=== PATIENT | female | born 1965 | race Caucasian/White ===

== ENCOUNTER → 2017-12-30 | Outpatient (CLI) | payer OTHER ==
[~2017-12-30] MED LIST: CIPR500T87 PO; DIPH25CA61 PO; HYDR25TA11 PO; METR500T PO
== END | disposition home or self-care (01) ==
LOC: CFH 16:04
PROVIDERS: ATTEND Obstetrics & Gynecology Gynecology
DX: Z12.31 Encounter for screening mammogram for malignant neoplasm of breast (principal)
CPT/HCPCS: 77063; 77067

== ENCOUNTER → 2018-11-30 | Outpatient (CLI) | payer OTHER | END | disposition home or self-care (01) | LOC: CFH 11:24 | PROVIDERS: ATTEND Family Medicine | DX: M85.88 Other specified disorders of bone density and structure, other site (principal); N95.9 Unspecified menopausal and perimenopausal disorder | CPT/HCPCS: 77080 ==

== ENCOUNTER → 2018-12-08 | Outpatient (CLI) | payer OTHER | END | disposition home or self-care (01) | LOC: CFH 16:20 | PROVIDERS: ATTEND Family Medicine | DX: M19.042 Primary osteoarthritis, left hand (principal); M19.041 Primary osteoarthritis, right hand ==

== ENCOUNTER → 2019-01-04 | Outpatient (CLI) | payer OTHER | END | disposition home or self-care (01) | LOC: CFH 12:24 | PROVIDERS: ATTEND Family Medicine | DX: Z12.31 Encounter for screening mammogram for malignant neoplasm of breast (principal) | CPT/HCPCS: 77063; 77067 ==

== ENCOUNTER → 2019-10-18 | Outpatient (CLI) | payer OTHER ==
[~2019-10-18] MED LIST changes: +HYDR-826 PO; -HYDR25TA11 PO
== END | disposition home or self-care (01) ==
LOC: CFH 16:09
PROVIDERS: ATTEND Family Medicine
DX: K59.09 Other constipation (principal)
CPT/HCPCS: 74018

== ENCOUNTER → 2019-12-24 | Outpatient (CLI) | payer OTHER ==
[~2019-12-24] MED LIST changes: +OMNIPAQUE 350 MG/ML, 100ML BOTTLE ONE
== END | disposition home or self-care (01) ==
LOC: CFH 07:35
PROVIDERS: ATTEND Internal Medicine Gastroenterology
DX: K76.0 Fatty (change of) liver, not elsewhere classified (principal); K44.9 Diaphragmatic hernia without obstruction or gangrene; K57.30 Diverticulosis of large intestine without perforation or abscess without bleeding; N28.1 Cyst of kidney, acquired; I70.0 Atherosclerosis of aorta; M85.88 Other specified disorders of bone density and structure, other site; M47.819 Spondylosis without myelopathy or radiculopathy, site unspecified; M79.89 Other specified soft tissue disorders
CPT/HCPCS: 73620; 74018; 74177; 77077; Q9967

== ENCOUNTER → 2020-03-03 | Outpatient (CLI) | payer OTHER ==
[~2020-03-03] MED LIST changes: -OMNIPAQUE 350 MG/ML, 100ML BOTTLE ONE
== END | disposition home or self-care (01) ==
LOC: CFH 14:05
PROVIDERS: ATTEND Family Medicine
DX: Z12.31 Encounter for screening mammogram for malignant neoplasm of breast (principal)
CPT/HCPCS: 76641; 77063; 77067

== ENCOUNTER → 2020-07-26 | Outpatient (CLI) | payer OTHER | END | disposition home or self-care (01) | LOC: CFH 10:56 | PROVIDERS: ATTEND Anesthesiology | DX: M47.817 Spondylosis without myelopathy or radiculopathy, lumbosacral region (principal); M51.25 Other intervertebral disc displacement, thoracolumbar region | CPT/HCPCS: 72120; 72148 ==

== ENCOUNTER 2021-01-11 11:08 | Outpatient (CLI) | payer OTHER | END 2021-01-11 23:59 | disposition home or self-care (01) | LOC: CFH 11:08 | PROVIDERS: ATTEND Family Medicine | DX: N95.9 Unspecified menopausal and perimenopausal disorder (principal) | CPT/HCPCS: 77080 ==

== ENCOUNTER → 2021-03-21 | Outpatient (CLI) | payer OTHER | END | disposition home or self-care (01) | LOC: CFH 11:51 | PROVIDERS: ATTEND Plastic Surgery | DX: N63.24 Unspecified lump in the left breast, lower inner quadrant (principal); N64.89 Other specified disorders of breast; N60.02 Solitary cyst of left breast | CPT/HCPCS: 76642; 77062; 77066; G0279 ==

== ENCOUNTER 2021-06-19 12:28 | Outpatient (CLI) | payer OTHER ==
[2021-06-19] MEDS ORDERED: LIDOCAINE 1%-EPI 1:100K, 20ML ONE (16:26)
[2021-06-19] MEDS ORDERED: SODIUM BICARBONATE 4.2%, 5ML ONE (16:26)
[2021-06-19] MEDS ORDERED: LIDOCAINE 1%, 20ML ONE (16:26)
== END 2021-06-19 23:59 | disposition home or self-care (01) ==
LOC: CFH 12:28
PROVIDERS: ATTEND Family Medicine
DX: N63.23 Unspecified lump in the left breast, lower outer quadrant (principal); N61.22 Granulomatous mastitis, left breast; Z88.1 Allergy status to other antibiotic agents; Z88.8 Allergy status to other drugs, medicaments and biological substances; Z91.09 Other allergy status, other than to drugs and biological substances; Z79.899 Other long term (current) drug therapy; Z72.89 Other problems related to lifestyle; Z87.891 Personal history of nicotine dependence
CPT/HCPCS: 19083; 77065; 88305; 88312; 88341; 88342; J3490

== ENCOUNTER 2021-06-25 19:54 | Emergency (ER) | payer OTHER ==
[~2021-06-25] VITALS: Ht 152.4 cm; Wt 63.6 kg
[2021-06-25 20:38] LABS: BASOPHILS % (AUTO) 0 % (0-1); EOSINOPHILS % (AUTO) 4 % (1-7); LYMPHOCYTES % (AUTO) 30 % (22-44); MEAN CORPUSCULAR HEMOGLOBIN 30.5 pg (27.0-34.8); MEAN CORPUSCULAR HGB CONC 33.6 g/dL (32.4-35.8); MEAN PLATELET VOLUME 8.3 fL (7.4-10.4); MONOCYTES % (AUTO) 7 % (2-9); NEUTROPHILS % (AUTO) 59 % (42-75); PLATELET COUNT 316 x10^3/uL (130-400); RED BLOOD COUNT 4.56 x10^6/uL (3.82-5.3); RED CELL DISTRIBUTION WIDTH 13.6 % (9.6-15.2)
[2021-06-25 20:48] LABS: ALANINE AMINOTRANSFERASE 27 U/L (12-78); ALBUMIN 4.1 g/dL (3.4-5.0); ANION GAP 5 mmol/L (5-15); CALCIUM 9.4 mg/dL (8.5-10.1); CHLORIDE 107 mmol/L (98-107); CREATININE 0.84 mg/dL (0.55-1.02)
[2021-06-25 20:51] LABS: ALKALINE PHOSPHATASE 158 U/L (45-117); BILIRUBIN,TOTAL 0.3 mg/dL (0.2-1.0); TOTAL PROTEIN 8.1 g/dL (6.4-8.2)
--- NOTE | 2021-06-25 23:08 | NUR ---
ermd at bedside for eval
[2021-06-25] MEDS ORDERED: SULFAMETH./TRIMETHOPRIM DS 800MG/160MG TABLET ONE (23:23)
[2021-06-25] MEDS ORDERED: CEFDINIR 300 MG CAPSULE ONE (23:23)
[2021-06-25 23:27] VITALS: BP 116/74
[2021-06-25] MEDS ORDERED: SULFAMETH./TRIMETHOPRIM DS 800MG/160MG TABLET PO ONE (23:30)
[2021-06-25] MEDS ORDERED: CEFDINIR 300 MG CAPSULE PO ONE (23:30)
--- NOTE | 2021-06-25 23:53 | NUR ---
Patient/Caregiver given discharge instructions and they have confirmed that they understand the instructions. Patient ambulatory with steady gait. NAD, all questions answered appropriately, denies additional needs at this time. No personal belongings left in room after discharge.
== END 2021-06-25 23:54 | disposition home or self-care (01) ==
LOC: ED 20:00
DX: L03.313 Cellulitis of chest wall (principal); L40.9 Psoriasis, unspecified
CPT/HCPCS: 36415; 80053; 85025; 99284; J7512